=== PATIENT | male | born 1985 | race Caucasian/White ===

== ENCOUNTER 2016-07-02 06:06 | Emergency (ER) | payer SELFPAY ==
[~2016-07-02 06:06] MED LIST: IBUP800T23 PO; METH750T2 PO
[2016-07-02 06:09] VITALS: BP 147/91; PULSE 86; RESP 16; TEMP 97.5; O2SAT 98
[2016-07-02] MEDS ORDERED: CYCL1TAB29 PO (06:37)
[2016-07-02] MEDS ORDERED: IBUP800T23 PO (06:37)
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
[2016-07-02] MEDS ORDERED: ORPHENADRINE INJ 60 MG/2 ML AMP IM ONE (06:45)
[2016-07-02] MEDS ORDERED: KETOROLAC TROMETHAMINE 60 MG/2 ML (IM) VIAL IM ONE (06:45)
== END 2016-07-02 07:13 | disposition home or self-care (01) ==
LOC: NEPD 06:06
DX: G24.3 Spasmodic torticollis (principal); J45.909 Unspecified asthma, uncomplicated; F17.210 Nicotine dependence, cigarettes, uncomplicated
CPT/HCPCS: 96372; 99283; J1885; J2360